=== PATIENT | male | born 1970 ===

== ENCOUNTER → 2017-09-02 | Outpatient (CLI) | payer OTHER ==
[~2017-09-02] VITALS: Ht 152.4 cm; Wt 83.9 kg
[~2017-09-02] MED LIST: ALLEGRA ALLERG180 MG PO; GILTUSS TR TAB1 EACH PO
== END | disposition home or self-care (01) ==
LOC: PPHC 11:55
DX: R05 Cough (principal); R50.9 Fever, unspecified